=== PATIENT | male | born 1985 | race Caucasian/White ===

== ENCOUNTER 2016-11-14 08:12 | Emergency (ER) | payer OTHER ==
--- NOTE | 2016-11-14 08:41 | EDPHY ---
H & P Time Seen by Provider: 11/14/16 08:29 HPI/ROS: HPI Testicular pain. 31-year-old male by private vehicle. He complains of atraumatic right testicular pain starting at 4:00 p.m. yesterday. He reports the pain has persisted and worsened since that time. He reports he has had this pain in the past. He reports the last episode was about 1 year ago. He reports that usually resolves spontaneously. He is not sexually active at this time. He denies any penile or scrotal lesions. No urinary complaints. No purulent drainage from his penis. ROS: Constitutional: No fever, no chills. No weakness. Gastrointestinal: No abdominal pain, no vomiting, no diarrhea. Genitourinary: No hematuria. No dysuria or increased frequency with urination. As above. Musculoskeletal: No back pain. No neck pain. No myalgias or arthralgias. Skin: No rashes. Neurological: No headache. No focal weakness or altered sensation. Past medical history: Type 1 diabetes. He has an insulin pump for this. Social history: He is here by himself. Denies alcohol. Nonsmoker. Physical Exam: General Appearance: Alert, no distress. This patient is responding to questions appropriately and in full sentences. This patient appears well- hydrated and well-nourished. Eyes: Pupils equal and round no pallor or injection. No lid edema, erythema or injection. Testicular exam: Normal testicular lie. No erythema, ecchymosis, swelling or edema involving the testicles. No clinical evidence of torsion. No significant tenderness over the epididymis on the right side. No scrotal or skin lesions. He is circumcised. Gastrointestinal: Abdomen is soft and nontender, no masses, bowel sounds normal. No focal tenderness at McBurney's point. No Myers sign. Neurological: Motor sensory function is grossly intact. Cranial nerves are normal. Gait is normal. Skin: Warm and dry, no rashes. Musculoskeletal: Neck is supple and nontender. Extremities are symmetrical. All joints range without pain or impingement. Psychiatric: No agitation. No depression. Database: EKG: Imaging: Testicular ultrasound: No evidence of testicular torsion. Right-sided epididymitis noted with reactive hydrocele. Results were discussed with staff radiologist. Procedures: Emergency department course: Vital signs reviewed. Patient declines pain medication at this time. Testicular ultrasound has been ordered. 9:50 a.m., patient re-evaluated. Resting comfortably at this time. Discussed results of ultrasound and diagnosis. He was given 250 mg of IM ceftriaxone in the emergency department. He was also given 500 mg of oral levofloxacin. Plan will be to discharge him home with Urology follow-up. I will prescribe him a 500 mg of levofloxacin daily for the next 9 days as well. He feels comfortable with this plan and comfortable going home. He understands his follow-up. Return to emergency department precautions discussed. All of his questions were answered. He was discharged in good condition. Differential Diagnosis: The differential diagnosis on this patient includes but is not limited to epididymitis, testicular contusion, testicular torsion. STI unlikely. This represents a partial list of diagnoses considered. These considerations are based on history, physical exam, past history, reassessment and diagnostic testing. Smoking Status: Never smoked Constitutional: Initial Vital Signs Temperature (C) 36.5 C 11/14/16 08:17 Heart Rate 79 11/14/16 08:17 Respiratory Rate 17 11/14/16 08:17 Blood Pressure 133/87 H 11/14/16 08:17 O2 Sat (%) 97 11/14/16 08:17 O2 Delivery Mode Room Air Allergies/Adverse Reactions: No Known Allergies Allergy (Unverified 11/14/16 08:17) Home Medications: Medication Instructions Recorded Humalog 11/14/16 levOFLOXACIN [Levaquin] 500 mg PO DAILY #9 tablet 11/14/16 Medical Decision Making - Diagnostics Imaging Results: Imaging Impressions Testicular Ultrasound 11/14/16 08:28 IMPRESSION: 1. Probable right epididymitis with right hydrocele, likely reactive. 2. No evidence of testicular torsion. Dr. Kirkpatrick discussed these findings by telephone with Donna Lance MD at 11/14/2016 9:34. Departure - Departure Disposition: Home, Routine, Self-Care Clinical Impression: Right testicular pain Condition: Good Instructions: Epididymitis (ED), Testicle Pain (ED) Additional Instructions: Read and follow provided instructions. Follow-up with Urology, Dr. Paul, at [facility] within the next 2- 3 days for re-evaluation. Call his office this afternoon for appointment time. Explain this is for an emergency department follow-up. Take medication as prescribed through entire course of treatment. Wear supportive briefs as discussed. Return to the emergency department for worsening pain, fever, swelling or other serious concerns. Referrals: Keith Gleason MD [Primary Care Provider] - As per Instructions Charly Paul MD [Medical Doctor] - As per Instructions Prescriptions: levOFLOXACIN [Levaquin] 500 mg PO DAILY #9 tablet
[2016-11-14] MEDS ORDERED: CEFTRIAXONE IM 350 MG/ML SYRINGE IM ONE (09:51)
[2016-11-14 11:23] VITALS: BP 126/71; PULSE 78; RESP 14; TEMP 98.6; O2SAT 94
== END 2016-11-14 10:15 | disposition home or self-care (01) ==
DX: N50.811 Right testicular pain (principal); E10.9 Type 1 diabetes mellitus without complications
CPT/HCPCS: J0696

== ENCOUNTER → 2017-10-28 | Outpatient (CLI) | payer OTHER | LOC: BMCIMAGING 12:22 | PROVIDERS: ATTEND Orthopaedic Surgery Hand Surgery | DX: M79.641 Pain in right hand (principal) ==

== ENCOUNTER → 2017-12-17 | Outpatient (CLI) | payer OTHER | LOC: BMCIMAGING 08:42 | PROVIDERS: ATTEND Internal Medicine | DX: M47.894 Other spondylosis, thoracic region (principal) ==